=== PATIENT | male | born 1955 | race Caucasian/White ===

== ENCOUNTER 2018-02-11 20:22 | Emergency (ER) | payer OTHER ==
[~2018-02-11] VITALS: Ht 180.3 cm; Wt 124.7 kg
== END 2018-02-11 22:46 | disposition home or self-care (01) ==
LOC: ED 20:22
DX: S80.211A Abrasion, right knee, initial encounter (principal); E11.9 Type 2 diabetes mellitus without complications; I10 Essential (primary) hypertension; Z87.891 Personal history of nicotine dependence; W18.40XA Slipping, tripping and stumbling without falling, unspecified, initial encounter
CPT/HCPCS: 73560; 99283

== ENCOUNTER 2018-08-08 11:15 | Emergency (ER) | payer MEDICARE, OTHER ==
[~2018-08-08] VITALS: Ht 180.3 cm; Wt 101.6 kg
[~2018-08-08 11:15] MED LIST: BENZTROPINE MESY1 MG PO; CHLORPROMAZINE100 MG PO; CHLORPROMAZINE25 MG PO; FLOMAX0.4 MG PO; FOLIC ACID1 MG PO; LEVEMIR100 UNIT/1 SUB-Q; LOVASTATIN40 MG PO; OLANZAPINE2.5 MG PO; OLANZAPINE5 MG PO; STOOL SOFTENER250 MG PO; SYNTHROID100 MCG PO; ZESTRIL2.5 MG PO; ZYLOPRIM300 MG PO
[2018-08-08] MEDS ORDERED: ZESTRIL2.5 MG PO (13:17)
[2018-08-08] MEDS ORDERED: NEURONTIN300 MG PO (13:17)
--- NOTE | 2018-08-09 07:15 | EKG ---
[facility] [address] [facility] [place] [address] Signed Normal sinus rhythm Normal ECG When compared with ECG of 16-APR-2018 23:03, No significant change was found Confirmed by SHANE BAR MD ([id number] on 08/09/2018 7:15:03 AM Electronically Signed By: SHANE BAR MD 08/09/1815 PATIENT NAME: HANNAH VAIL Electrocardiogram DATE OF : 51 PHYSICIAN: SHANE BAR MD REPORT #: [id number] REPORT IS CONFIDENTIAL AND NOT TO BE RELEASED WITHOUT AUTHORIZATION
== END 2018-08-08 17:35 | disposition home or self-care (01) ==
LOC: ED 11:15
DX: R53.1 Weakness (principal); E11.22 Type 2 diabetes mellitus with diabetic chronic kidney disease; I12.9 Hypertensive chronic kidney disease with stage 1 through stage 4 chronic kidney disease, or unspecified chronic kidney disease; N18.9 Chronic kidney disease, unspecified; R50.9 Fever, unspecified; Z79.899 Other long term (current) drug therapy
CPT/HCPCS: 36415; 70450; 71045; 80053; 81001; 83605; 85025; 93005; 93010; 96360; 99285-25; J7040

== ENCOUNTER 2019-02-16 14:02 | Emergency (ER) | payer MEDICARE, OTHER ==
[~2019-02-16] VITALS: Ht 180.3 cm; Wt 101.6 kg
[~2019-02-16 14:02] MED LIST changes: +NEURONTIN300 MG PO
[2019-02-16] MEDS ORDERED: ARICEPT5 MG PO (14:45)
[2019-02-16] MEDS ORDERED: ASPIR 8181 MG PO (14:51)
--- NOTE | 2019-02-16 21:44 | EKG ---
[facility] [address] [facility] [place] [address] Signed Junctional rhythm Nonspecific ST abnormality Abnormal ECG When compared with ECG of 08-AUG-2018 11:43, Junctional rhythm has replaced Sinus rhythm Confirmed by FABI LAWSON DO ([id number]) on 02/16/2019 9:44:45 PM Electronically Signed By: FABI LAWSON DO 02/16/19 [id number] PATIENT NAME: HANNAH VAIL Electrocardiogram DATE OF : 51 PHYSICIAN: FABI LAWSON DO REPORT #: [id number] REPORT IS CONFIDENTIAL AND NOT TO BE RELEASED WITHOUT AUTHORIZATION
== END 2019-02-16 17:05 | disposition home or self-care (01) ==
LOC: ED 14:02
DX: R53.1 Weakness (principal); E10.9 Type 1 diabetes mellitus without complications; F20.9 Schizophrenia, unspecified; I10 Essential (primary) hypertension; Z87.891 Personal history of nicotine dependence; Z79.899 Other long term (current) drug therapy; Z79.82 Long term (current) use of aspirin
CPT/HCPCS: 70450; 80053; 81001; 82550; 85025; 93005; 93010; 99285-25